=== PATIENT | female | born 1985 | race Caucasian/White ===

== ENCOUNTER 2016-09-21 21:29 | Emergency (ER) | payer MEDICAID ==
[2016-09-21 21:50] LABS: URINE APPEARANCE CLEAR; URINE BILIRUBIN NEGATIVE (NEGATIVE); URINE BLOOD NEGATIVE (NEGATIVE); URINE COLOR YELLOW; URINE GLUCOSE (UA) NEGATIVE (NEGATIVE); URINE KETONE NEGATIVE (NEGATIVE); URINE LEUKOCYTE ESTERASE NEGATIVE (NEGATIVE); URINE NITRITE NEGATIVE (NEGATIVE); URINE PROTEIN NEGATIVE (NEGATIVE); URINE UROBILINOGEN 0.2 E.U./dL (0.20 - 1.00)
[2016-09-21 21:51] LABS: HCG,QUALITATIVE URINE NEGATIVE (NEGATIVE)
[2016-09-21] MEDS ORDERED: 0.9 % SODIUM CHLORIDE 1,000 ML BAG IV ONE (22:29)
[2016-09-21] MEDS ORDERED: HYDROMORPHONE HCL 1 MG/ML CPJ IVP ONE (22:29)
[2016-09-21] MEDS ORDERED: ONDANSETRON HCL IV 4 MG/2 ML VIAL IV ONE (22:29)
[2016-09-21 22:59] LABS: BASO % 0.4 % (0-6); EOS % 1.3 % (0-6); GRAN % 50.9 % (47-80); HEMATOCRIT 41.2 % (35.0-47.0); HEMOGLOBIN 14.3 gm/dl (11.6-16.0); MEAN CELL VOLUME 94.1 fl (81-97); MEAN CORPUSCULAR HEMOGLOBIN 32.6 pg (27-33); MEAN CORPUSCULAR HGB CONC 34.7 g/dl (32-36); MEAN PLATELET VOLUME 11.6 fl (7.4-10.4); MONO % 8.4 % (0-9); PLATELET COUNT 232 K/uL (130-400); RED BLOOD COUNT 4.38 M/uL (3.80-5.40); RED CELL DISTRIBUTION WIDTH 12.6 % (11.5-14.5); WHITE BLOOD COUNT W/O DIFF 7.5 K/uL (4.2-12.2)
--- NOTE | 2016-09-21 23:06 | Emergency Department Record ---
History of Present Illness - General Chief Complaint: Abdominal Pain Stated Complaint: R SIDE ABD PAIN GOING DOWN R LEG Time Seen by Provider: 09/21/16 22:18 Source: Patient Mode of Arrival: Ambulatory Limitations: No limitations - History of Present Illness Initial Comments: pt is c/o rlq pain that radiates down into her r leg. she is 2 wks late on her menses but denies possibility of . she has extensive surgical hx w complications.. she has nausea MD Complaint: Abdominal pain Onset/Timin -: Week(s) Location: RLQ Radiation: Other Consistency: Intermittent Improves With: Rest Worsens With: Movement Associated Symptoms: Anorexia, Diarrhea, Nausea - Related Data Patient : No Home Medications Medication Instructions Recorded Confirmed Last Taken Clonazepam [Klonopin] 0.5 mg PO BID 07/16/15 09/21/16 09/21/16 Ondansetron HCl [Zofran] 4 mg PO Q6H PRN 09/21/16 09/21/16 Unknown Allergies Allergy/AdvReac Type Severity Reaction Status Date / Time No Known Drug Allergies Allergy Verified 07/16/15 15:51 Travel Screening - Travel/Exposure Within Last 30 Days Have you traveled within the last 30 days?: No - Travel Symptoms Symptom Screening: None Review of Systems Reviewed: No additional complaints except as noted below Constitutional: Reports: As per HPI. Denies: Chills, Fever, Malaise, Night sweats, Weakness, Weight change Eyes: Reports: As per HPI. Denies: Eye discharge, Eye pain, Photophobia, Vision change ENT: Reports: As per HPI. Denies: Congestion, Dental pain, Ear pain, Epistaxis , Hearing loss, Throat pain Respiratory: Reports: As per HPI. Denies: Cough, Dyspnea, Hemoptysis, Stridor, Wheezes Cardiovascular: Reports: As per HPI. Denies: Arrhythmia, Chest pain, Dyspnea on exertion, Edema, Murmurs, Orthopnea, Palpitations, Paroxysmal nocturnal dyspnea, Rheumatic Fever, Syncope Endocrine: Reports: As per HPI. Denies: Fatigue, Heat or cold intolerance, Polydipsia, Polyuria Gastrointestinal: Reports: As per HPI. Denies: Abdominal pain, Constipation, Diarrhea, Hematemesis, Hematochezia, Melena, Nausea, Vomiting Genitourinary: Reports: As per HPI. Denies: Abnormal menses, Discharge, Dyspareunia, Dysuria, Frequency, Hematuria, Incontinence, Retention, Urgency Musculoskeletal: Reports: As per HPI. Denies: Arthralgia, Back pain, Gout, Joint swelling, Myalgia, Neck pain Skin: Reports: As per HPI. Denies: Bruising, Change in color, Change in hair/ nails, Lesions, Pruritus, Rash Neurological: Reports: As per HPI. Denies: Abnormal gait, Confusion, Headache, Numbness, Paresthesias, Seizure, Tingling, Tremors, Vertigo, Weakness Psychiatric: Reports: As per HPI. Denies: Anxiety, Auditory hallucinations, Depression, Homicidal thoughts, Suicidal thoughts, Visual hallucinations Hematological/Lymphatic: Reports: As per HPI. Denies: Anemia, Blood Clots, Easy bleeding, Easy bruising, Swollen glands Past Medical History - SOCIAL HISTORY Smoking Status: Current every day smoker - RESPIRATORY Hx Respiratory Disorders: Yes Hx Pneumonia: Yes - CARDIOVASCULAR Hx Cardio Disorders: No - NEURO Hx Neuro Disorders: Yes Hx Seizures: Yes (Childhood epilepsy) - GI Hx GI Disorders: Yes Hx Abdominal Pain: Yes Hx Pancreatitis: Yes Comment:: w/Elisa-bowel was knicked-became septic, needed resection - Hx Genitourinary Disorders: No - ENDOCRINE Hx Endocrine Disorders: No - MUSCULOSKELETAL Hx Musculoskeletal Disorders: No - PSYCH Hx Psych Problems: Yes Hx Anxiety: Yes Hx Depression: Yes - HEMATOLOGY/ONCOLOGY Hx Hematology/Oncology Disorders: No Family Medical History Any Significant Family History?: Yes *Cancer Comment: aunt-breast cancer Hx HTN: Father, Grandparents Physical Exam - General General Appearance: Alert, Oriented x3, Cooperative, Mild distress - Head Head exam: Normal inspection - Eye Eye exam: Normal appearance, PERRL, EOMI Pupils: Normal accommodation - ENT ENT exam: Normal exam, Mucous membranes moist, Normal external ear exam, Normal orophraynx Ear exam: Normal external inspection. negative: External canal tenderness Nasal Exam: Normal inspection. negative: Discharge, Sinus tenderness Mouth exam: Normal external inspection, Tongue normal Teeth exam: Normal inspection. negative: Dental caries Throat exam: Normal inspection. negative: Tonsillar erythema, Tonsillar exudate - Neck Neck exam: Normal inspection, Full ROM. negative: Tenderness - Respiratory Respiratory exam: Normal lung sounds bilaterally. negative: Respiratory distress - Cardiovascular Cardiovascular Exam: Regular rate, Normal rhythm, Normal heart sounds - GI/Abdominal GI/Abdominal exam: Soft, Normal bowel sounds, Tenderness - Rectal Rectal exam: Deferred - exam: Deferred - Extremities Extremities exam: Normal inspection, Full ROM, Normal capillary refill. negative: Tenderness - Back Back exam: Reports: Normal inspection, Full ROM. Denies: Muscle spasm, Rash noted, Tenderness - Neurological Neurological exam: Alert, CN II-XII intact, Normal gait, Oriented X3 - Psychiatric Psychiatric exam: Normal affect, Normal mood - Skin Skin exam: Dry, Intact, Normal color, Warm Course Vital Signs 09/21/16 21:44 Temperature 98.3 F Pulse Rate [ 104 H Pulse Ox Probe] Respiratory 20 Rate Blood Pressure 132/101 [Left Arm] Pulse Ox 98 Medical Decision Making - Management Options MDM Management: Additional Work-up Planned (e.g. ADM/Transfer/OP Study) - Data Complexity MDM Data: Labs Ordered and/or Reviewed, X-Ray Ordered and/or Reviewed - Lab Data Result diagrams: 09/21/16 22:50 09/21/16 22:50 Lab Results 09/21/16 09/21/16 09/21/16 Range/Units 21:51 22:29 22:50 WBC 7.5 (4.2-12.2) K/uL RBC 4.38 (3.80-5.40) M/uL Hgb 14.3 (11.6-16.0) gm/dl Hct 41.2 (35.0-47.0) % MCV 94.1 (81-97) fl MCH 32.6 (27-33) pg MCHC 34.7 (32-36) g/dl RDW 12.6 (11.5-14.5) % Plt Count 232 (130-400) K/uL MPV 11.6 H (7.4-10.4) fl Gran % 50.9 (47-80) % Lymphocytes % 39.0 (16-45) % Monocytes % 8.4 (0-9) % Eosinophils % 1.3 (0-6) % Basophils % 0.4 (0-6) % Urine Color Yellow Urine Appearance Clear Urine pH 5.5 (5.0-8.0) Ur Specific [place] 1.010 (1.002-1.030) Urine Protein Negative (NEGATIVE) Urine Glucose (UA) Negative (NEGATIVE) Urine Ketones Negative (NEGATIVE) Urine Blood Negative (NEGATIVE) Urine Nitrite Negative (NEGATIVE) Urine Bilirubin Negative (NEGATIVE) Urine Urobilinogen 0.2 (0.20 - 1.00) E.U./dL Ur Leukocyte Esterase Negative (NEGATIVE) Urine HCG, Qual Negative Cancelled (NEGATIVE) - Radiology Data Radiology results: Report reviewed, Image reviewed Disposition Disposition: Discharge Clinical Impression: Abdominal pain Qualifiers: Abdominal location: right lower quadrant Qualified Code(s): R10.31 - Right lower quadrant pain Disposition: Home, Self-Care Condition: (1) Good Instructions: Abdominal Pain (ED) Additional Instructions: follow up with family doctor and with gi doctor. return sooner if worse
[2016-09-21 23:11] LABS: ALB/GLOB RATIO 1.3 (1.1-1.8); ALBUMIN 4.1 gm/dL (3.5-5.0); ALKALINE PHOSPHATASE 59 U/L (38-126); ALT/SGPT 53 U/L (9-52); ANION GAP 8.1 (7-16); AST/SGOT 39 U/L (14-36); BILIRUBIN,TOTAL 0.21 mg/dL (0.2-1.3); BLOOD UREA NITROGEN 5 mg/dL (7-17); CARBON DIOXIDE 22.9 mmol/L (22-30); CREATININE 0.6 mg/dL (0.52-1.04); EST GLOMERULAR FILTRATION RATE > 60 ml/min; GLUCOSE,RANDOM 84 mg/dL (70-110); LIPASE 106 U/L (23-300); TOTAL PROTEIN 7.2 gm/dL (6.3-8.2)
[2016-09-22] MEDS ORDERED: HYDROMORPHONE HCL 1 MG/ML CPJ IVP ONE (00:48)
--- NOTE | 2016-09-24 08:17 | CT SCAN REPORT ---
EXAM: ABDOMEN AND PELVIS CT WITH IV CONTRAST HISTORY: ACUTE RIGHT LOWER QUADRANT ABDOMINAL PAIN. PRIOR PARTIAL COLECTOMY WITH COLOSTOMY. TECHNIQUE: Contiguous axial images from the thoracic inlet to the symphysis pubis were obtained after the uneventful intravenous administration of 100 ml of Omnipaque 300. Oral contrast was also utilized. Comparison: Abdomen and pelvis CT 07/16/15. FINDINGS: The lung bases are clear. The liver is unremarkable with no focal lesion. The spleen is not enlarged with calcified granulomata. Suspect subcentimeter parapelvic right renal cysts. The kidneys are otherwise unremarkable. The adrenals and pancreas are normal. The gallbladder is absent. Status post subtotal colectomy. There appears to be an end-to-side anastomosis in the right mid abdomen best seen on axial image 63 of 126. On images 53 to 62 , the nondistended portion of residual colon proximal to the anastomosis demonstrates concentric wall thickening and mucosal hyperenhancement. This has improved from the prior study. Adjacent mildly enlarged lymph nodes are again noted in the right upper quadrant measuring up to 16 x 11 mm previously measuring up to 17 x 14 mm. No intestinal obstruction. No ascites. The uterus is present. Cyst in the right ovary measures 3.6 cm. No lytic or blastic osseous lesion. IMPRESSION: 1. STATUS POST SUBTOTAL COLECTOMY. THERE HAS BEEN IMPROVEMENT OF INFLAMMATORY CHANGE OF THE RESIDUAL COLON NEAR THE ANASTOMOSIS ALTHOUGH THERE IS MILD FOCAL INFLAMMATION REMAINING. ADJACENT REACTIVE MESENTERIC LYMPH NODES HAVE ALSO DECREASED IN SIZE AND NUMBER FROM THE PRIOR STUDY. NO INTESTINAL OBSTRUCTION. 2. PROBABLE BENIGN B[place] TYPE 1 PARAPELVIC RIGHT RENAL CYST. 3. OLD GRANULOMATOUS DISEASE. JOB NUMBER: [id number] [facility]
== END 2016-09-22 02:15 | disposition home or self-care (01) ==
LOC: ER 21:29
DX: R10.31 Right lower quadrant pain (principal); R19.7 Diarrhea, unspecified; R11.0 Nausea
CPT/HCPCS: 74177; 80053; 81003; 81025; 83690; 85025; 96361; 96374; 96375; 96376; 99284; J1170; J2405; J7030

== ENCOUNTER 2016-09-23 20:28 | Emergency (ER) | payer MEDICAID ==
[2016-09-23] MEDS ORDERED: HYDROCODONE/APAP 5/325MG TABLET PO ONE (20:50)
--- NOTE | 2016-09-23 21:25 | Emergency Department Record ---
History of Present Illness - General Chief Complaint: Ankle/Foot Injury Stated Complaint: ANKLE INJURY Time Seen by Provider: 09/23/16 20:41 Source: Patient Mode of Arrival: Ambulatory Limitations: No limitations - History of Present Illness Initial Comments: pt tripped over toy and injured l foot and ankle about an hour ago Complaint: Ankle injury, Foot injury Onset/Timin -: Hour(s) Injury: Ankle: Left, Foot: Left Type of Injury: Inversion Place: Home Severity: Moderate Severity scale (1-10): 7 Improves With: Cold therapy Worsens With: Weight bearing Context: Walking Associated Symptoms: Swelling, Able to partially bear weight Treatments Prior to Arrival: Cold therapy - Related Data Home Medications Medication Instructions Recorded Confirmed Last Taken Clonazepam [Klonopin] 0.5 mg PO BID 07/16/15 09/23/16 09/21/16 Ondansetron HCl [Zofran] 4 mg PO Q6H PRN 09/21/16 09/23/16 Unknown Previous Rx's Medication Instructions Recorded Hydrocodone/Acetaminophen [[place] 1 tab PO Q6H PRN #7 tab 09/23/16 5mg/325mg] Allergies Allergy/AdvReac Type Severity Reaction Status Date / Time No Known Drug Allergies Allergy Verified 07/16/15 15:51 Travel Screening - Travel/Exposure Within Last 30 Days Have you traveled within the last 30 days?: No - Travel Symptoms Symptom Screening: None Review of Systems Reviewed: No additional complaints except as noted below Constitutional: Reports: As per HPI. Denies: Chills, Fever, Malaise, Night sweats, Weakness, Weight change Eyes: Reports: As per HPI. Denies: Eye discharge, Eye pain, Photophobia, Vision change ENT: Reports: As per HPI. Denies: Congestion, Dental pain, Ear pain, Epistaxis , Hearing loss, Throat pain Respiratory: Reports: As per HPI. Denies: Cough, Dyspnea, Hemoptysis, Stridor, Wheezes Cardiovascular: Reports: As per HPI. Denies: Arrhythmia, Chest pain, Dyspnea on exertion, Edema, Murmurs, Orthopnea, Palpitations, Paroxysmal nocturnal dyspnea, Rheumatic Fever, Syncope Endocrine: Reports: As per HPI. Denies: Fatigue, Heat or cold intolerance, Polydipsia, Polyuria Gastrointestinal: Reports: As per HPI. Denies: Abdominal pain, Constipation, Diarrhea, Hematemesis, Hematochezia, Melena, Nausea, Vomiting Genitourinary: Reports: As per HPI. Denies: Abnormal menses, Discharge, Dyspareunia, Dysuria, Frequency, Hematuria, Incontinence, Retention, Urgency Musculoskeletal: Reports: As per HPI. Denies: Arthralgia, Back pain, Gout, Joint swelling, Myalgia, Neck pain Skin: Reports: As per HPI. Denies: Bruising, Change in color, Change in hair/ nails, Lesions, Pruritus, Rash Neurological: Reports: As per HPI. Denies: Abnormal gait, Confusion, Headache, Numbness, Paresthesias, Seizure, Tingling, Tremors, Vertigo, Weakness Psychiatric: Reports: As per HPI. Denies: Anxiety, Auditory hallucinations, Depression, Homicidal thoughts, Suicidal thoughts, Visual hallucinations Hematological/Lymphatic: Reports: As per HPI. Denies: Anemia, Blood Clots, Easy bleeding, Easy bruising, Swollen glands Past Medical History - SOCIAL HISTORY Smoking Status: Current every day smoker - RESPIRATORY Hx Respiratory Disorders: Yes Hx Pneumonia: Yes - CARDIOVASCULAR Hx Cardio Disorders: No - NEURO Hx Neuro Disorders: Yes Hx Seizures: Yes (Childhood epilepsy) - GI Hx GI Disorders: Yes Hx Abdominal Pain: Yes Hx Pancreatitis: Yes Comment:: w/Elisa-bowel was knicked-became septic, needed resection - Hx Genitourinary Disorders: No - ENDOCRINE Hx Endocrine Disorders: No - MUSCULOSKELETAL Hx Musculoskeletal Disorders: No - PSYCH Hx Psych Problems: Yes Hx Anxiety: Yes Hx Depression: Yes - HEMATOLOGY/ONCOLOGY Hx Hematology/Oncology Disorders: No Family Medical History Any Significant Family History?: Yes *Cancer Comment: aunt-breast cancer Hx HTN: Father, Grandparents Physical Exam - General General Appearance: Alert, Oriented x3, Cooperative, Mild distress - Head Head exam: Normal inspection - Eye Eye exam: Normal appearance, PERRL, EOMI Pupils: Normal accommodation - ENT ENT exam: Normal exam, Mucous membranes moist, Normal external ear exam, Normal orophraynx Ear exam: Normal external inspection. negative: External canal tenderness Nasal Exam: Normal inspection. negative: Discharge, Sinus tenderness Mouth exam: Normal external inspection, Tongue normal Teeth exam: Normal inspection. negative: Dental caries Throat exam: Normal inspection. negative: Tonsillar erythema, Tonsillar exudate - Neck Neck exam: Normal inspection, Full ROM. negative: Tenderness - Respiratory Respiratory exam: Normal lung sounds bilaterally. negative: Respiratory distress - Cardiovascular Cardiovascular Exam: Regular rate, Normal rhythm, Normal heart sounds - GI/Abdominal GI/Abdominal exam: Soft, Normal bowel sounds. negative: Tenderness - Rectal Rectal exam: Deferred - exam: Deferred - Extremities Extremities exam: Full ROM, Normal capillary refill, Tenderness Image of Feet: 1 - swelling, ecchymosis, tender - Back Back exam: Reports: Normal inspection, Full ROM. Denies: Muscle spasm, Rash noted, Tenderness - Neurological Neurological exam: Alert, CN II-XII intact, Normal gait, Oriented X3 - Psychiatric Psychiatric exam: Normal affect, Normal mood - Skin Skin exam: Dry, Intact, Normal color, Warm Course Vital Signs 09/23/16 20:32 Temperature 97.7 F Pulse Rate 101 H Respiratory 16 Rate Blood Pressure 119/82 Pulse Ox 96 Medical Decision Making - Management Options MDM Management: Additional Work-up Planned (e.g. ADM/Transfer/OP Study) - Data Complexity MDM Data: X-Ray Ordered and/or Reviewed - Radiology Data Radiology results: Report reviewed, Image reviewed Disposition Disposition: Discharge Clinical Impression: Sprain of Ankle Qualifiers: Encounter type: initial encounter Involved ligament of ankle: unspecified ligament Laterality: left Qualified Code(s): S93.402A - Sprain of unspecified ligament of left ankle, initial encounter Disposition: Home, Self-Care Condition: (1) Good Instructions: Ankle Sprain (ED) Additional Instructions: follow up with family doctor. return sooner if worse. ice and elevate. motrin for pain. Prescriptions: Hydrocodone/Acetaminophen [[place] 5mg/325mg] 1 tab PO Q6H PRN #7 tab PRN Reason: Pain - General Forms: Patient Portal Access
--- NOTE | 2016-09-25 13:39 | RADIOLOGY REPORT ---
EXAM: LEFT ANKLE, THREE VIEWS HISTORY: PATIENT HAS INJURY OF THE LEFT ANKLE. TECHNIQUE: Three views of the left ankle were provided without comparison studies. FINDINGS: There is no radiographic evidence of a fracture or dislocation of the left ankle. Mild soft tissue swelling is noted over the lateral aspect of the tarsal bones. The anterior tibiotalar fat pad is within normal limits. IMPRESSION: MILD SOFT TISSUE SWELLING IS NOTED OVER THE LATERAL ASPECT OF THE TARSAL BONES WITHOUT RADIOGRAPHIC EVIDENCE OF A FRACTURE OR DISLOCATION OF THE LEFT ANKLE. JOB NUMBER: [id number] [facility]
--- NOTE | 2016-09-25 13:42 | RADIOLOGY REPORT ---
EXAM: LEFT FOOT, THREE VIEWS HISTORY: PATIENT HAS INJURY TO THE LEFT FOOT. TECHNIQUE: Three views of the left foot were provided without comparison studies. FINDINGS: There is no radiographic evidence of a fracture or dislocation of the left foot. Mild soft tissue swelling is noted over the lateral aspect of the tarsal bones. IMPRESSION: MILD SOFT TISSUE SWELLING IS NOTED OVER THE LATERAL ASPECT OF THE TARSAL BONES WITHOUT RADIOGRAPHIC EVIDENCE OF A FRACTURE OR DISLOCATION OF THE LEFT FOOT. JOB NUMBER: [id number] [facility]
== END 2016-09-23 22:17 | disposition home or self-care (01) ==
LOC: ER 20:28
DX: S93.402A Sprain of unspecified ligament of left ankle, initial encounter (principal); M79.672 Pain in left foot; W22.8XXA Striking against or struck by other objects, initial encounter; Y92.009 Unspecified place in unspecified non-institutional (private) residence as the place of occurrence of the external cause
CPT/HCPCS: 99283; 99284

== ENCOUNTER 2017-01-19 18:06 | Emergency (ER) | payer MEDICAID ==
--- NOTE | 2017-01-19 19:04 | Emergency Department Record ---
History of Present Illness - General Chief Complaint: Chest Pain Stated Complaint: CHEST & L ARM PAIN Time Seen by Provider: 01/19/17 18:58 Source: Patient Mode of Arrival: Ambulatory Limitations: No limitations - History of Present Illness Initial Comments: 31 yo female presents to ED with a CC of intermittent chest pain for the past 5 hours. Patient reports that her pain symptoms are radiating down her left arm. Patient denies any precipitating factors, and the patient reports that her symptoms last "for a few seconds". Patient denies health problems other than "my stomach". Patient denies leg swelling or pain, and patient denies previous DVT. Patient also complains of right upper dental pain for the past 2-3 days, reports "I think I need an antibiotic". MD Complaint: Chest pain Onset/Timin -: Hour(s) Pain Location: Left chest Pain Radiation: LUE Severity: Moderate Severity scale (1-10): 7 Quality: Other Consistency: Constant Improves With: Nothing Worsens With: Nothing Treatments Prior to Arrival: None - Related Data On Oral Contraceptives: No Home Medications Medication Instructions Recorded Confirmed Last Taken Clonazepam [Klonopin] 0.5 mg PO BID 07/16/15 01/19/17 09/21/16 Ondansetron HCl [Zofran] 4 mg PO Q6H PRN 09/21/16 01/19/17 Unknown Dicyclomine HCl 10 mg PO DAILY 01/19/17 01/19/17 Unknown Allergies Allergy/AdvReac Type Severity Reaction Status Date / Time No Known Drug Allergies Allergy Verified 07/16/15 15:51 Travel Screening - Travel/Exposure Within Last 30 Days Have you traveled within the last 30 days?: No Review of Systems Constitutional: Denies: Chills, Fever, Malaise, Night sweats Eyes: Denies: Eye discharge, Eye pain ENT: Denies: Congestion, Ear pain, Epistaxis Respiratory: Denies: Cough, Dyspnea Cardiovascular: Reports: Chest pain. Denies: Dyspnea on exertion Endocrine: Denies: Fatigue, Heat or cold intolerance Gastrointestinal: Denies: Abdominal pain, Nausea, Vomiting Genitourinary: Denies: Incontinence, Retention Musculoskeletal: Denies: Arthralgia, Back pain, Gout, Joint swelling Skin: Denies: Bruising, Change in color Neurological: Denies: Abnormal gait, Confusion, Headache Psychiatric: Denies: Anxiety Hematological/Lymphatic: Denies: Anemia, Blood Clots Past Medical History - SOCIAL HISTORY Smoking Status: Current every day smoker Alcohol Use: Occasional Drug Use: None - RESPIRATORY Hx Respiratory Disorders: Yes Hx Pneumonia: Yes - CARDIOVASCULAR Hx Cardio Disorders: No - NEURO Hx Neuro Disorders: Yes Hx Seizures: Yes (Childhood epilepsy) - GI Hx GI Disorders: Yes Hx Abdominal Pain: Yes Hx Pancreatitis: Yes Comment:: w/Elisa-bowel was knicked-became septic, needed resection - Hx Genitourinary Disorders: No - ENDOCRINE Hx Endocrine Disorders: No - MUSCULOSKELETAL Hx Musculoskeletal Disorders: No - PSYCH Hx Psych Problems: Yes Hx Anxiety: Yes Hx Depression: Yes - HEMATOLOGY/ONCOLOGY Hx Hematology/Oncology Disorders: No Family Medical History Any Significant Family History?: Yes *Cancer Comment: aunt-breast cancer Hx HTN: Father, Grandparents Physical Exam - General General Appearance: Alert, Oriented x3, Cooperative, No acute distress Limitations: No limitations - Head Head exam: Atraumatic, Normocephalic, Normal inspection Head exam detail: negative: Abrasion, Contusion, Hector's sign, General tenderness, Hematoma, Laceration - Eye Eye exam: Normal appearance. negative: Conjunctival injection, Periorbital swelling, Periorbital tenderness, Scleral icterus - ENT Ear exam: negative: Auricular hematoma, Auricular trauma Mouth exam: negative: Drooling, Laceration, Muffled voice, Tongue elevation Teeth exam: Dental caries, Dental tenderness # Image of Mouth/Teeth: 1 - Dental tenderness, no gingival abscess is present - Neck Neck exam: Normal inspection. negative: Meningismus, Tenderness - Respiratory Respiratory exam: Normal lung sounds bilaterally. negative: Respiratory distress, Rhonchi, Stridor, Wheezes - Cardiovascular Cardiovascular Exam: Normal rhythm, Normal heart sounds, Tachycardia - GI/Abdominal GI/Abdominal exam: Soft. negative: Rebound, Rigid, Tenderness - Rectal Rectal exam: Deferred - exam: Deferred - Extremities Extremities exam: Normal inspection. negative: Pedal edema, Tenderness - Back Back exam: Denies: CVA tenderness (R), CVA tenderness (L) - Neurological Neurological exam: Alert, Normal gait, Oriented X3 - Psychiatric Psychiatric exam: Normal affect, Normal mood - Skin Skin exam: Normal color. negative: Abrasion Type of lesion: negative: abrasion Course Vital Signs 01/19/17 18:18 Temperature 98.7 F Pulse Rate 101 H Respiratory 20 Rate Blood Pressure 129/62 Pulse Ox 97 - Reevaluation(s) Reevaluation #1: 01/19/17 18:58 EKG: Sinus Tachycardia 107 Normal axis Normal intervals NO acute ST-T wave changes Reevaluation #2: 01/19/17 19:26 Nursing staff entered the room to initiate cardiac evaluation, patient eloped from the ED. Will attempt to locate the patient by phone. Reevaluation #3: 01/19/17 19:45 Both of the listed phone numbers for the patient were contacted, no answer. Medical Decision Making - Lab Data Result diagrams: 01/19/17 18:59 01/19/17 18:59 Disposition Disposition: Other (eloped) Clinical Impression: Pain, dental Chest pain Qualifiers: Chest pain type: unspecified Qualified Code(s): R07.9 - Chest pain, unspecified Disposition: Against Medical Advice Forms: Patient Portal Access Time of Disposition: 23:20 Quality - Quality Measures Quality Measures: N/A - Blood Pressure Screening Blood Pressure Classification: Pre-Hypertensive BP Reading Systolic Measurement: 129 Diastolic Measurement: 62 Screening for High Blood Pressure: < Pre-Hypertensive BP, F/U Documented > [ [id number]] Pre-Hypertensive Follow-up Interventions: Referral to alternative/primary care provider.
== END 2017-01-19 19:15 | disposition left against medical advice (07) ==
LOC: ER 18:06
DX: R07.9 Chest pain, unspecified (principal); K08.89 Other specified disorders of teeth and supporting structures
CPT/HCPCS: 99283

== ENCOUNTER 2017-05-16 19:11 | Emergency (ER) | payer MEDICAID ==
[2017-05-16] MEDS ORDERED: IBUPROFEN 400 MG TABLET PO ONE (19:32)
[2017-05-16] MEDS ORDERED: ACETAMINOPHEN 325 MG TAB PO ONE (19:35)
--- NOTE | 2017-05-16 19:47 | Emergency Department Record ---
History of Present Illness - General Chief Complaint: Ankle/Foot Injury Stated Complaint: LT ANKLE PAIN Time Seen by Provider: 05/16/17 19:31 Source: Patient Mode of Arrival: Ambulatory Limitations: No limitations - History of Present Illness Initial Comments: 31 yo female presents to ED for evaluation of injury to the left ankle while helping her mother move today. Patient reports an inversion-type injury resulting in swelling, pain and, and bruising symptoms. Patient denies taking any medication for pain prior to arrival, and denies other injury. Patient reports that she was able to partially apply weight prior to arrival. MD Complaint: Ankle injury Onset/Timin -: Hour(s) Injury: Ankle: Left Type of Injury: Blunt, Inversion Place: Home Severity: Mild Improves With: Rest Worsens With: Palpation, Weight bearing Associated Symptoms: Ambulatory, Able to partially bear weight - Related Data Home Medications Medication Instructions Recorded Confirmed Last Taken Albuterol Sulfate [Ventolin Hfa] 1 - 2 puff INH ASDIR 05/16/17 05/16/17 Unknown Allergies Allergy/AdvReac Type Severity Reaction Status Date / Time No Known Drug Allergies Allergy Verified 07/16/15 15:51 Travel Screening - Travel/Exposure Within Last 30 Days Have you traveled within the last 30 days?: No - Travel/Exposure Within Last Year Have you traveled outside the [place] in the last year?: No - Additonal Travel Details Have you been exposed to anyone with a communicable illness?: No - Travel Symptoms Symptom Screening: None Review of Systems Constitutional: Denies: Chills, Fever, Malaise, Night sweats Eyes: Denies: Eye discharge, Eye pain ENT: Denies: Congestion, Ear pain, Epistaxis Respiratory: Denies: Cough, Dyspnea Cardiovascular: Denies: Chest pain, Dyspnea on exertion Endocrine: Denies: Fatigue, Heat or cold intolerance Gastrointestinal: Denies: Abdominal pain, Nausea, Vomiting Genitourinary: Denies: Incontinence, Retention Musculoskeletal: Reports: Arthralgia, Joint swelling Skin: Reports: Bruising. Denies: Change in color Neurological: Denies: Abnormal gait, Confusion, Headache, Seizure Psychiatric: Denies: Anxiety Hematological/Lymphatic: Denies: Anemia, Blood Clots Past Medical History - SOCIAL HISTORY Smoking Status: Current every day smoker Alcohol Use: Occasional Drug Use: None - RESPIRATORY Hx Respiratory Disorders: Yes Hx Pneumonia: Yes - CARDIOVASCULAR Hx Cardio Disorders: No - NEURO Hx Neuro Disorders: Yes Hx Seizures: Yes (Childhood epilepsy) - GI Hx GI Disorders: Yes Hx Abdominal Pain: Yes Hx Pancreatitis: Yes Comment:: w/Elisa-bowel was knicked-became septic, needed resection - Hx Genitourinary Disorders: No - ENDOCRINE Hx Endocrine Disorders: No - MUSCULOSKELETAL Hx Musculoskeletal Disorders: No - PSYCH Hx Psych Problems: Yes Hx Anxiety: Yes Hx Depression: Yes - HEMATOLOGY/ONCOLOGY Hx Hematology/Oncology Disorders: No Family Medical History Any Significant Family History?: No *Cancer Comment: aunt-breast cancer Hx HTN: Father, Grandparents Physical Exam - General General Appearance: Alert, Oriented x3, Cooperative, Mild distress Limitations: No limitations - Head Head exam: Atraumatic, Normocephalic, Normal inspection Head exam detail: negative: Abrasion, Contusion, Hector's sign, General tenderness, Hematoma, Laceration - Eye Eye exam: Normal appearance. negative: Conjunctival injection, Periorbital swelling, Periorbital tenderness, Scleral icterus - ENT Ear exam: negative: Auricular hematoma, Auricular trauma Nasal Exam: negative: Active bleeding, Discharge, Dried blood, Foreign body Mouth exam: negative: Drooling, Laceration, Muffled voice, Tongue elevation - Neck Neck exam: Normal inspection. negative: Meningismus, Tenderness - Respiratory Respiratory exam: Normal lung sounds bilaterally. negative: Rales, Respiratory distress, Rhonchi, Stridor - Cardiovascular Cardiovascular Exam: Regular rate, Normal rhythm, Normal heart sounds Peripheral Pulses: 3+: Dorsalis Pedis (L) - GI/Abdominal GI/Abdominal exam: Soft. negative: Rebound, Rigid, Tenderness - Rectal Rectal exam: Deferred - exam: Deferred - Extremities Extremities exam: Tenderness, Other (TTP over jose cruz left lateral ankle with mild abrasion, ecchymosis present). negative: Calf tenderness, Pedal edema - Back Back exam: Denies: CVA tenderness (R), CVA tenderness (L) - Neurological Neurological exam: Alert, Oriented X3 - Psychiatric Psychiatric exam: Normal affect, Normal mood - Skin Skin exam: Normal color. negative: Abrasion Type of lesion: negative: abrasion Course Vital Signs 05/16/17 19:14 Temperature 97.8 F Pulse Rate 111 H Respiratory 20 Rate Blood Pressure 132/101 Pulse Ox 97 - Reevaluation(s) Reevaluation #1: 11/12/17 20:07 Left ankle: No acute fracture identified Will place in an air splint and administer crutches for comfort, patient was updated on her results, and appears stable for discharge at this time. Reevaluation #2: 05/16/17 20:23 Patient eloped from the ED prior to air splint and crutch administration. Patient ambulated from the department with steady gait per nursing staff. Disposition Disposition: Discharge Clinical Impression: Ankle sprain Disposition: Home, Self-Care Condition: (2) Stable Instructions: Ankle Sprain (ED) Additional Instructions: Return to ED if your symptoms worsen or if you have any concerns. Ice and Tylenol as needed for pain symptoms. Air splint and crutches as directed. Follow-up with your family doctor in 3-5 days as directed. Forms: Patient Portal Access Time of Disposition: 20:08 Quality - Quality Measures Quality Measures: N/A - Blood Pressure Screening Does Patient Have Any of the Following: No Blood Pressure Classification: Hypertensive Reading Systolic Measurement: 132 Diastolic Measurement: 101 Screening for High Blood Pressure: < First Hypertensive BP, F/U Documented > [ G8950] First Hypertensive Follow-up Interventions: Referral to alternative/primary care provider.
--- NOTE | 2017-05-17 10:11 | RADIOLOGY REPORT ---
EXAM: LEFT ANKLE, THREE VIEWS HISTORY: PAIN POST TRIPPING INJURY. TECHNIQUE: Three views of the left ankle were obtained. Comparison: Three views of the left ankle dated 09/23/16. Encounter: Initial. FINDINGS: There is normal bone mineralization. No acute fracture, dislocation , or destructive bone lesion is seen. The articular relations are maintained. No focal periarticular soft tissue abnormality. IMPRESSION: NO ACUTE BONE NOR JOINT ABNORMALITY IDENTIFIED. JOB NUMBER: [id number] MTDD
== END 2017-05-16 20:28 | disposition home or self-care (01) ==
LOC: ER 19:11
DX: S93.402A Sprain of unspecified ligament of left ankle, initial encounter (principal); X50.0XXA Overexertion from strenuous movement or load, initial encounter; Y93.E6 Activity, residential relocation; Y92.009 Unspecified place in unspecified non-institutional (private) residence as the place of occurrence of the external cause
CPT/HCPCS: 99283

== ENCOUNTER 2017-10-16 09:29 | Emergency (ER) | payer MEDICAID ==
--- NOTE | 2017-10-16 10:12 | Emergency Department Record ---
History of Present Illness - General Chief complaint: Dental Stated complaint: TOOTH ACHE Time Seen by Provider: 10/16/17 09:49 Mode of Arrival: Ambulatory - History of Present Illness Initial comments: upper left molar pain started one day ago and her teeth are in poor repair MD complaint: Tooth pain Onset/Timin -: Days(s) Severity: Severe Severity scale (1-10): 10 Quality: Aching Consistency: Constant Improves with: None Worsens with: None - Related Data Previous Rx's Medication Instructions Recorded Naproxen [Naprosyn] 500 mg PO Q12H #20 tab.dr 10/16/17 Penicillin V Potassium 500 mg PO QID #40 tablet 10/16/17 Allergies Allergy/AdvReac Type Severity Reaction Status Date / Time No Known Drug Allergies Allergy Verified 10/16/17 09:55 Travel Screening - Travel/Exposure Within Last 30 Days Have you traveled within the last 30 days?: No Review of Systems Reviewed: No additional complaints except as noted below Constitutional: Reports: As per HPI. Denies: Chills, Fever, Malaise, Night sweats, Weakness, Weight change Eyes: Reports: As per HPI. Denies: Eye discharge, Eye pain, Photophobia, Vision change ENT: Reports: As per HPI. Denies: Congestion, Dental pain, Ear pain, Epistaxis , Hearing loss, Throat pain Respiratory: Reports: As per HPI. Denies: Cough, Dyspnea, Hemoptysis, Stridor, Wheezes Cardiovascular: Reports: As per HPI. Denies: Arrhythmia, Chest pain, Dyspnea on exertion, Edema, Murmurs, Orthopnea, Palpitations, Paroxysmal nocturnal dyspnea, Rheumatic Fever, Syncope Endocrine: Reports: As per HPI. Denies: Fatigue, Heat or cold intolerance, Polydipsia, Polyuria Gastrointestinal: Reports: As per HPI. Denies: Abdominal pain, Constipation, Diarrhea, Hematemesis, Hematochezia, Melena, Nausea, Vomiting Genitourinary: Reports: As per HPI. Denies: Abnormal menses, Discharge, Dyspareunia, Dysuria, Frequency, Hematuria, Incontinence, Retention, Urgency Musculoskeletal: Reports: As per HPI. Denies: Arthralgia, Back pain, Gout, Joint swelling, Myalgia, Neck pain Skin: Reports: As per HPI. Denies: Bruising, Change in color, Change in hair/ nails, Lesions, Pruritus, Rash Neurological: Reports: As per HPI. Denies: Abnormal gait, Confusion, Headache, Numbness, Paresthesias, Seizure, Tingling, Tremors, Vertigo, Weakness Psychiatric: Reports: As per HPI. Denies: Anxiety, Auditory hallucinations, Depression, Homicidal thoughts, Suicidal thoughts, Visual hallucinations Hematological/Lymphatic: Reports: As per HPI. Denies: Anemia, Blood Clots, Easy bleeding, Easy bruising, Swollen glands Past Medical History - SOCIAL HISTORY Smoking Status: Current every day smoker Alcohol Use: None Drug Use: None - RESPIRATORY Hx Respiratory Disorders: Yes Hx Pneumonia: Yes - CARDIOVASCULAR Hx Cardio Disorders: No - NEURO Hx Neuro Disorders: Yes Hx Seizures: Yes (Childhood epilepsy) - GI Hx GI Disorders: Yes Hx Abdominal Pain: Yes Hx Irritable Bowel: Yes (ulcerative colitis) Hx Pancreatitis: Yes Comment:: w/Elisa-bowel was knicked-became septic, needed resection - Hx Genitourinary Disorders: No - ENDOCRINE Hx Endocrine Disorders: No - MUSCULOSKELETAL Hx Musculoskeletal Disorders: No - PSYCH Hx Psych Problems: Yes Hx Anxiety: Yes Hx Depression: Yes - HEMATOLOGY/ONCOLOGY Hx Hematology/Oncology Disorders: No Family Medical History Any Significant Family History?: Yes *Cancer Comment: aunt-breast cancer Hx HTN: Father, Grandparents Physical Exam - General General Appearance: Alert, Oriented x3, Cooperative, No acute distress - Head Head exam: Normal inspection - Eye Eye exam: Normal appearance, PERRL Pupils: Normal accommodation - ENT ENT exam: Normal exam, Mucous membranes moist, Normal external ear exam, Normal orophraynx, TM's normal bilaterally Ear exam: Normal external inspection. negative: External canal tenderness Nasal Exam: Normal inspection. negative: Discharge, Sinus tenderness Mouth exam: Normal external inspection, Tongue normal Teeth exam: Dental caries, Dental tenderness # Throat exam: Normal inspection. negative: Tonsillar erythema, Tonsillar exudate Image of Mouth/Teeth: 1 - toothache - Neck Neck exam: Normal inspection, Full ROM. negative: Tenderness - Respiratory Respiratory exam: Normal lung sounds bilaterally. negative: Respiratory distress - Cardiovascular Cardiovascular Exam: Regular rate, Normal rhythm, Normal heart sounds - GI/Abdominal GI/Abdominal exam: Soft, Normal bowel sounds. negative: Tenderness - Rectal Rectal exam: Deferred - exam: Deferred - Extremities Extremities exam: Normal inspection, Full ROM, Normal capillary refill. negative: Tenderness - Back Back exam: Reports: Normal inspection, Full ROM. Denies: Muscle spasm, Rash noted, Tenderness - Neurological Neurological exam: Alert, Normal gait, Oriented X3, Reflexes normal - Psychiatric Psychiatric exam: Normal affect, Normal mood - Skin Skin exam: Dry, Intact, Normal color, Warm Course Vital Signs 10/16/17 09:54 Temperature 98.1 F Pulse Rate 99 H Respiratory 20 Rate Blood Pressure 125/87 Pulse Ox 97 Disposition Clinical Impression: Tooth ache Disposition: Home, Self-Care Condition: (1) Good Instructions: Toothache (ED) Additional Instructions: warm water rinses Prescriptions: Naproxen [Naprosyn] 500 mg PO Q12H #20 tab.dr Penicillin V Potassium 500 mg PO QID #40 tablet Quality - Quality Measures Quality Measures: N/A - Blood Pressure Screening Does Patient Have Any of the Following: No Blood Pressure Classification: Pre-Hypertensive BP Reading Systolic Measurement: 125 Diastolic Measurement: 87 Screening for High Blood Pressure: < Pre-Hypertensive BP, F/U Documented > [ G8950] Pre-Hypertensive Follow-up Interventions: Referral to alternative/primary care provider.
== END 2017-10-16 10:20 | disposition home or self-care (01) ==
LOC: ER 09:29
DX: K02.9 Dental caries, unspecified (principal); F17.210 Nicotine dependence, cigarettes, uncomplicated
CPT/HCPCS: 99282

== ENCOUNTER 2017-10-18 13:37 | Emergency (ER) | payer MEDICAID ==
--- NOTE | 2017-10-18 13:47 | Emergency Department Record ---
History of Present Illness - General Stated complaint: SWELLING LT SIDE FACE,TOOTH PAIN Time Seen by Provider: 10/18/17 13:40 Source: Patient Mode of Arrival: Ambulatory Limitations: No limitations - History of Present Illness Initial comments: 32 yo female presents with left sided facial pain and swelling. She has poor dentition. She started Penicillin on the . The area has developed some swelling of the upper cheek. No fever. No limitation to opening and closing the jaw. No neck pain. No swollen glands. She has called dentists but they do not take her insurance. She has not called her doctor. No lower jaw pain. MD complaint: Tooth pain -: Days(s) (3) Location: Tooth # Quality: Aching Consistency: Constant Improves with: None Worsens with: Eating Context- Dental: History of dental caries - Related Data Previous Rx's Medication Instructions Recorded Naproxen [Naprosyn] 500 mg PO Q12H #20 tab. 10/16/17 Penicillin V Potassium 500 mg PO QID #40 tablet 10/16/17 Clindamycin HCl 300 mg PO QID #28 capsule 10/18/17 Hydrocodone/Acetaminophen [[place] 1 each PO Q6H #10 tablet 10/18/17 5-325 Tablet] Allergies Allergy/AdvReac Type Severity Reaction Status Date / Time No Known Drug Allergies Allergy Verified 10/18/17 13:47 Review of Systems Constitutional: Denies: Chills, Fever, Malaise, Weakness Eyes: Denies: Eye discharge ENT: Reports: As per HPI, Dental pain. Denies: Congestion, Throat pain Respiratory: Denies: Cough, Dyspnea Cardiovascular: Denies: Chest pain, Syncope Endocrine: Denies: Fatigue Gastrointestinal: Denies: Abdominal pain, Diarrhea, Nausea, Vomiting Genitourinary: Denies: Dysuria, Urgency Musculoskeletal: Denies: Arthralgia, Back pain, Neck pain Skin: Denies: Change in color, Rash Neurological: Denies: Confusion Psychiatric: Denies: Anxiety Hematological/Lymphatic: Denies: Easy bleeding, Easy bruising, Swollen glands Past Medical History - SOCIAL HISTORY Smoking Status: Current every day smoker Drug Use: None - RESPIRATORY Hx Respiratory Disorders: Yes Hx Pneumonia: Yes - CARDIOVASCULAR Hx Cardio Disorders: No - NEURO Hx Neuro Disorders: Yes Hx Seizures: Yes (Childhood epilepsy) - GI Hx GI Disorders: Yes Hx Abdominal Pain: Yes Hx Irritable Bowel: Yes (ulcerative colitis) Hx Pancreatitis: Yes Comment:: w/Elisa-bowel was knicked-became septic, needed resection - Hx Genitourinary Disorders: No - ENDOCRINE Hx Endocrine Disorders: No - MUSCULOSKELETAL Hx Musculoskeletal Disorders: No - PSYCH Hx Psych Problems: Yes Hx Anxiety: Yes Hx Depression: Yes - HEMATOLOGY/ONCOLOGY Hx Hematology/Oncology Disorders: No Family Medical History *Cancer Comment: aunt-breast cancer Hx HTN: Father, Grandparents Physical Exam - General General Appearance: Alert, Oriented x3, Cooperative, No acute distress Limitations: No limitations - Head Head exam: Atraumatic, Normocephalic. negative: Normal inspection Image of Face/Head: 1 - mild swelling of the cheek, no warmth or redness - Eye Eye exam: Normal appearance. negative: Conjunctival injection, Periorbital swelling, Periorbital tenderness, Scleral icterus - ENT ENT exam: Normal exam, Mucous membranes moist, Normal orophraynx Ear exam: Normal external inspection Nasal Exam: Normal inspection Mouth exam: Normal external inspection Teeth exam: Dental caries, Dental tenderness #, Fractured tooth #, Other (No visible abscess, no intraoral swelling, widely patent). negative: Gingival enlargement Throat exam: Normal inspection. negative: Tonsillar erythema, Tonsillar exudate - Neck Neck exam: Normal inspection, Full ROM. negative: Lymphadenopathy, Tenderness - Respiratory Respiratory exam: Normal lung sounds bilaterally. negative: Respiratory distress - Cardiovascular Cardiovascular Exam: Regular rate, Normal rhythm, Normal heart sounds - Rectal Rectal exam: Deferred - exam: Deferred - Extremities Extremities exam: Normal inspection - Neurological Neurological exam: Alert, Oriented X3 - Psychiatric Psychiatric exam: Normal affect, Normal mood - Skin Skin exam: Dry, Intact, Normal color, Warm Course - Reevaluation(s) Reevaluation #1: 32 yo with likely dental infection with mild swelling. NO fever, no abscess visible. She was given IV Clindamycin She was referred to the [facility] that accepts her insurance She will be brought back for additional antibiotics and a recheck as well. 10/18/17 13:51 Disposition Disposition: Discharge Clinical Impression: Dental infection Disposition: Home, Self-Care Condition: (1) Good Instructions: Dental Abscess (ED) Additional Instructions: You have been referred to the emergency dental services at the [facility] [place] Department Return at 9pm for an additional IV dose of mediation tonight Prescriptions: Clindamycin HCl 300 mg PO QID #28 capsule Hydrocodone/Acetaminophen [[place] 5-325 Tablet] 1 each PO Q6H #10 tablet Time of Disposition: 14:01 Quality - Quality Measures Quality Measures: N/A - Blood Pressure Screening Does Patient Have Any of the Following: No Blood Pressure Classification: Pre-Hypertensive BP Reading Systolic Measurement: 147 Diastolic Measurement: 86 Screening for High Blood Pressure: < Pre-Hypertensive BP, F/U Documented > [ G8950] Pre-Hypertensive Follow-up Interventions: Referral to alternative/primary care provider.
[2017-10-18] MEDS ORDERED: CLINDAMYCIN 600MG/50ML PREMIX 600 MG/50 ML BAG IVPB ONE (13:48)
[2017-10-18] MEDS ORDERED: KETOROLAC 30 MG/ML VIAL IVP ONE (13:48)
== END 2017-10-18 14:46 | disposition home or self-care (01) ==
LOC: ER 13:37
DX: K04.7 Periapical abscess without sinus (principal); R22.0 Localized swelling, mass and lump, head; F17.210 Nicotine dependence, cigarettes, uncomplicated
CPT/HCPCS: 99282 ×2; 99284 ×2; 96374; 96365; 96375; J1885

== ENCOUNTER 2017-10-18 20:59 | Emergency (ER) | payer MEDICAID ==
[2017-10-18] MEDS ORDERED: CLINDAMYCIN 600MG/50ML PREMIX 600 MG/50 ML BAG IVPB ONE (21:14)
--- NOTE | 2017-10-18 21:27 | Emergency Department Record ---
History of Present Illness - General Chief Complaint: Wound, check Stated Complaint: 2ND ROUND OF ANTIBIOTICS Time Seen by Provider: 10/18/17 21:14 Source: Patient Mode of arrival: Ambulatory Limitations: No limitations - History of Present Illness Initial Comments: 32 yo female returns to ED for repeat IV antibiotics. Patient was seen and evaluated earlier this afternoon for dental infection, had been receiving PCN several days ago that was not improving her symptoms. Patient reports that she was switched to Clindamycin this afternoon, reports that she is here for repeat IV dosing before starting oral antibiotics tomorrow. Patient will also be following up with the [facility] dental clinic tomorrow. Patient denies any worsening of her symptoms following treatment earlier today. MD Complaint: Needs IV antibiotics Onset/Timin -: Days(s) Initial Visit For: Other (dental infection) Returns Today for: Needs IV antibiotics Symptoms Since Prior Visit: No new symptoms Associated Symptoms: None - Related Data Previous Rx's Medication Instructions Recorded Naproxen [Naprosyn] 500 mg PO Q12H #20 tab. 10/16/17 Clindamycin HCl 300 mg PO QID #28 capsule 10/18/17 Hydrocodone/Acetaminophen [[place] 1 each PO Q6H #10 tablet 10/18/17 5-325 Tablet] Allergies Allergy/AdvReac Type Severity Reaction Status Date / Time No Known Drug Allergies Allergy Verified 10/18/17 13:47 Travel Screening - Travel/Exposure Within Last 30 Days Have you traveled within the last 30 days?: No - Travel/Exposure Within Last Year Have you traveled outside the [place] in the last year?: No - Additonal Travel Details Have you been exposed to anyone with a communicable illness?: No - Travel Symptoms Symptom Screening: None Review of Systems Constitutional: Denies: Chills, Fever, Malaise, Night sweats Eyes: Denies: Eye discharge, Eye pain ENT: Reports: Dental pain. Denies: Congestion, Ear pain, Epistaxis Respiratory: Denies: Cough, Dyspnea Cardiovascular: Denies: Chest pain, Dyspnea on exertion Endocrine: Denies: Fatigue, Heat or cold intolerance Gastrointestinal: Denies: Abdominal pain, Nausea, Vomiting Genitourinary: Denies: Incontinence, Retention Musculoskeletal: Denies: Arthralgia, Back pain Skin: Denies: Bruising, Change in color Neurological: Denies: Abnormal gait, Confusion, Headache, Seizure Psychiatric: Denies: Anxiety Hematological/Lymphatic: Denies: Anemia, Blood Clots Past Medical History - SOCIAL HISTORY Smoking Status: Current every day smoker Alcohol Use: Occasional Drug Use: None - RESPIRATORY Hx Respiratory Disorders: Yes Hx Pneumonia: Yes - CARDIOVASCULAR Hx Cardio Disorders: No - NEURO Hx Neuro Disorders: Yes Hx Seizures: Yes (Childhood epilepsy) - GI Hx GI Disorders: Yes Hx Abdominal Pain: Yes Hx Irritable Bowel: Yes (ulcerative colitis) Hx Pancreatitis: Yes Comment:: w/Elisa-bowel was knicked-became septic, needed resection - Hx Genitourinary Disorders: No - ENDOCRINE Hx Endocrine Disorders: No - MUSCULOSKELETAL Hx Musculoskeletal Disorders: No - PSYCH Hx Psych Problems: Yes Hx Anxiety: Yes Hx Depression: Yes - HEMATOLOGY/ONCOLOGY Hx Hematology/Oncology Disorders: No Family Medical History Any Significant Family History?: No *Cancer Comment: aunt-breast cancer Hx HTN: Father, Grandparents Physical Exam - General General Appearance: Alert, Oriented x3, Cooperative, Mild distress Limitations: No limitations - Head Head exam: Atraumatic, Normocephalic, Normal inspection Head exam detail: negative: Abrasion, Contusion, Hector's sign, General tenderness, Hematoma, Laceration - Eye Eye exam: Normal appearance. negative: Conjunctival injection, Periorbital swelling, Periorbital tenderness, Scleral icterus - ENT Ear exam: negative: Auricular hematoma, Auricular trauma Nasal Exam: negative: Active bleeding, Discharge, Dried blood, Foreign body Mouth exam: negative: Drooling, Laceration, Muffled voice, Tongue elevation Teeth exam: Dental caries, Dental tenderness #, Fractured tooth # Throat exam: negative: Tonsillar erythema, Tonsillomegaly, R peritonsillar mass , L peritonsillar mass Image of Mouth/Teeth: 1 - dental fracture, no gingival abscess is present - Neck Neck exam: Normal inspection. negative: Meningismus, Tenderness - Respiratory Respiratory exam: Normal lung sounds bilaterally. negative: Rales, Respiratory distress, Rhonchi, Stridor - Cardiovascular Cardiovascular Exam: Regular rate, Normal rhythm, Normal heart sounds - GI/Abdominal GI/Abdominal exam: Soft. negative: Rebound, Rigid, Tenderness - Rectal Rectal exam: Deferred - exam: Deferred - Extremities Extremities exam: Normal inspection. negative: Calf tenderness, Pedal edema, Tenderness - Back Back exam: Denies: CVA tenderness (R), CVA tenderness (L) - Neurological Neurological exam: Alert, Normal gait, Oriented X3 - Psychiatric Psychiatric exam: Normal affect, Normal mood - Skin Skin exam: Normal color. negative: Abrasion Type of lesion: negative: abrasion Course Vital Signs 10/18/17 21:09 Temperature 98.2 F Pulse Rate [ 71 Pulse Ox Probe] Respiratory 20 Rate Blood Pressure 121/82 [Left Arm] Pulse Ox 97 - Reevaluation(s) Reevaluation #1: 10/18/17 21:32 Repeat IV clindamycin ordered to infuse, patient appears stable for discharge following her IV infusion as her symptoms have not worsened since that time. Patient has clear instructions for follow-up tomorrow as well. Disposition Disposition: Discharge Clinical Impression: Dental infection Disposition: Home, Self-Care Condition: (2) Stable Instructions: Dental Abscess (ED) Additional Instructions: Return to ED if your symptoms worsen or if you have any concerns. Follow-up with the [facility] in 1-2 days. Clindamycin as previously prescribed. Forms: Patient Portal Access Time of Disposition: 21:27 Quality - Quality Measures Quality Measures: N/A - Blood Pressure Screening Does Patient Have Any of the Following: No Blood Pressure Classification: Pre-Hypertensive BP Reading Systolic Measurement: 121 Diastolic Measurement: 82 Screening for High Blood Pressure: < Pre-Hypertensive BP, F/U Documented > [ G8950] Pre-Hypertensive Follow-up Interventions: Referral to alternative/primary care provider.
== END 2017-10-18 22:01 | disposition home or self-care (01) ==
LOC: ER 20:59
DX: K04.7 Periapical abscess without sinus (principal); F17.210 Nicotine dependence, cigarettes, uncomplicated

== ENCOUNTER 2017-11-14 20:17 | Emergency (ER) | payer MEDICAID ==
[2017-11-14] MEDS ORDERED: KETOROLAC 30 MG/ML VIAL IVP ONE (20:41)
[2017-11-14 20:46] LABS: BASO % 0.2 % (0-6); EOS % 1.2 % (0-6); GRAN % 54.5 % (47-80); HEMATOCRIT 44.3 % (35.0-47.0); HEMOGLOBIN 14.8 gm/dl (11.6-16.0); LYMPH % 38.8 % (16-45); MEAN CELL VOLUME 95.7 fl (81-97); MEAN CORPUSCULAR HGB CONC 33.4 g/dl (32-36); MEAN PLATELET VOLUME 11.2 fl (7.4-10.4); MONO % 5.3 % (0-9); PLATELET COUNT 300 K/uL (130-400); RED BLOOD COUNT 4.63 M/uL (3.80-5.40); RED CELL DISTRIBUTION WIDTH 13.2 % (11.5-14.5); WHITE BLOOD COUNT W/O DIFF 9.1 K/uL (4.2-12.2)
--- NOTE | 2017-11-14 20:48 | Emergency Department Record ---
History of Present Illness - General Chief Complaint: Chest Pain Stated Complaint: CHEST PAIN Time Seen by Provider: 11/14/17 20:28 Source: Patient Mode of Arrival: EMS Limitations: No limitations - History of Present Illness Initial Comments: The patient is here due to L sided CP for the last 6-7 hours. The pain is sharp and stabbing, non-radiating and is worse with chest twisting. There is no SOB, DHRUV, sweating, or nausea. The pain also is not pleuritic. The patient denies any injury or trauma or any hx of similar issues. Onset/Timin -: Hour(s) Pain Location: Left chest Severity scale (1-10): 8 - Related Data Home Medications Medication Instructions Recorded Confirmed Last Taken Sertraline HCl [Zoloft] 50 mg PO DAILY 11/14/17 11/14/17 Unknown Previous Rx's Medication Instructions Recorded Lidocaine Patch [Lidoderm] 1 ea TOP DAILY #7 patch 11/14/17 Naproxen [Naprosyn] 500 mg PO BID #14 tablet. 11/14/17 Allergies Allergy/AdvReac Type Severity Reaction Status Date / Time No Known Drug Allergies Allergy Verified 10/18/17 13:47 Travel Screening - Travel/Exposure Within Last 30 Days Have you traveled within the last 30 days?: No - Travel/Exposure Within Last Year Have you traveled outside the [place] in the last year?: No - Additonal Travel Details Have you been exposed to anyone with a communicable illness?: No - Travel Symptoms Symptom Screening: None Review of Systems Constitutional: Denies: Chills, Fever Eyes: Denies: Eye discharge ENT: Denies: Congestion Respiratory: Denies: Cough, Dyspnea Cardiovascular: Denies: Arrhythmia, Dyspnea on exertion Endocrine: Denies: Fatigue Gastrointestinal: Denies: Abdominal pain Genitourinary: Denies: Dysuria Musculoskeletal: Denies: Back pain Past Medical History - SOCIAL HISTORY Smoking Status: Current every day smoker Alcohol Use: Occasional Drug Use: None - RESPIRATORY Hx Respiratory Disorders: Yes Hx Pneumonia: Yes - CARDIOVASCULAR Hx Cardio Disorders: No - NEURO Hx Neuro Disorders: Yes Hx Seizures: Yes (Childhood epilepsy) - GI Hx GI Disorders: Yes Hx Abdominal Pain: Yes Hx Irritable Bowel: Yes (ulcerative colitis) Hx Pancreatitis: Yes Comment:: w/Elisa-bowel was knicked-became septic, needed resection - Hx Genitourinary Disorders: No - ENDOCRINE Hx Endocrine Disorders: No - MUSCULOSKELETAL Hx Musculoskeletal Disorders: No - PSYCH Hx Psych Problems: Yes Hx Anxiety: Yes Hx Depression: Yes - HEMATOLOGY/ONCOLOGY Hx Hematology/Oncology Disorders: No Family Medical History Any Significant Family History?: No *Cancer Comment: aunt-breast cancer Hx HTN: Father, Grandparents Physical Exam - General General Appearance: Alert, Oriented x3, Cooperative, No acute distress - Head Head exam: Atraumatic, Normocephalic, Normal inspection - Eye Eye exam: Normal appearance, PERRL - ENT Throat exam: Normal inspection. negative: Tonsillar erythema, Tonsillar exudate - Neck Neck exam: Normal inspection, Full ROM. negative: Tenderness - Respiratory Respiratory exam: Normal lung sounds bilaterally, Chest wall tenderness (The L sided CP is 100% reproducible with palpation of the L anterior chest wall.). negative: Respiratory distress - Cardiovascular Cardiovascular Exam: Regular rate, Normal rhythm, Normal heart sounds - GI/Abdominal GI/Abdominal exam: Soft, Normal bowel sounds. negative: Tenderness - Extremities Extremities exam: Normal inspection, Full ROM, Normal capillary refill. negative: Calf tenderness, Pedal edema, Tenderness Image of Full Body: 1 - Area of pain and reproducible tenderness. - Neurological Neurological exam: Alert. negative: Motor sensory deficit Course Vital Signs 11/14/17 20:18 Temperature 97.7 F Pulse Rate 82 Respiratory 20 Rate Blood Pressure 124/80 Pulse Ox 97 - Reevaluation(s) Reevaluation #1: The patient is resting comfortably at this time. Her pain is still 100% reproducible to palpation. I did explain to her that her workup is very normal and the etiology of the pain appears to be from her chest wall. She is to take the prescribed pain medicines and see her PCP this week for recheck. 11/14/17 21:50 Reevaluation #2: I did explain to the patient that I do not feel the etiology of her pain is cardiac due to the fact it is 100% reproducible, she is young, healthy with only tobacco as her risk factor for CAD. Her workup has been normal including and EKG, cardiac enzymes, and CXR. I also STRONGLY doubt a PE as the cause due to the pain not being pleuritic, no risk factors for PE, also low prob by Wells Criteria and PERC neg. 11/14/17 21:54 Medical Decision Making - Data Complexity MDM Data: Labs Ordered and/or Reviewed, X-Ray Ordered and/or Reviewed, EKG Ordered and/or Reviewed - Lab Data Result diagrams: 11/14/17 20:03 11/14/17 20:03 - EKG Data -: EKG Interpreted by Me EKG: No Acute Changes, Normal EKG - Radiology Data Radiology results: Report reviewed (CXR: Healed granulomatous dz, O/W neg.) Disposition Disposition: Discharge Clinical Impression: Chest wall pain Disposition: Home, Self-Care Condition: (2) Stable Instructions: Chest Wall Pain (ED) Additional Instructions: Please take Naprosyn for pain and also take the prescribed Lidoderm. Please see your family doctor for recheck in 2-3 days. Return to the ER for any worsening symptoms, or any trouble breathing or shortness of breath. Prescriptions: Lidocaine Patch [Lidoderm] 1 ea TOP DAILY #7 patch Naproxen [Naprosyn] 500 mg PO BID #14 tablet.dr Forms: Patient Portal Access Time of Disposition: 21:54 Quality - Quality Measures Quality Measures: N/A - Blood Pressure Screening View Details: Yes Does Patient Have Any of the Following: No Blood Pressure Classification: Pre-Hypertensive BP Reading Systolic Measurement: 124 Diastolic Measurement: 80 Screening for High Blood Pressure: < Pre-Hypertensive BP, F/U Documented > [ G8950] Pre-Hypertensive Follow-up Interventions: Referral to alternative/primary care provider.
[2017-11-14 20:56] LABS: BLOOD UREA NITROGEN 6 mg/dL (6-20); CREATININE 0.6 mg/dL (0.5-0.9); EST GLOMERULAR FILTRATION RATE > 60 mL/min
[2017-11-14 20:59] LABS: GLUCOSE,RANDOM 83 mg/dL (74-109)
[2017-11-14 21:02] LABS: CREATINE PHOSPHOKINASE 108 U/L (26-192)
[2017-11-14] MEDS ORDERED: ACETAMINOPHEN 1,000 MG/100 ML BTL IVPB ONE (21:17)
[2017-11-14] MEDS ORDERED: LIDOCAINE 5% PATCH TOP ONE (21:50)
--- NOTE | 2017-11-15 09:55 | RADIOLOGY REPORT ---
EXAM: CHEST, TWO VIEWS HISTORY: DIFFICULTY IN BREATHING. TECHNIQUE: Frontal and lateral views of the chest were performed. FINDINGS: The heart size is normal. The lung sorto are clear. There is calcified right hilar lymph nodes. There is calcified granuloma right upper lobe. No infiltrate or pleural effusion. IMPRESSION: FINDINGS SUGGESTIVE OF HEALED GRANULOMATOUS DISEASE. NO ACUTE PROCESS. JOB NUMBER: [id number] MTDD
== END 2017-11-14 22:06 | disposition home or self-care (01) ==
LOC: ER 20:17
DX: R07.89 Other chest pain (principal); R06.00 Dyspnea, unspecified; F17.210 Nicotine dependence, cigarettes, uncomplicated
CPT/HCPCS: 71046; 80048; 82550; 82553; 84484; 85025; 93005; 93010; 96365; 96375; 99284; J1885

== ENCOUNTER 2018-03-20 10:29 | Emergency (ER) | payer SELFPAY ==
--- NOTE | 2018-03-20 10:44 | Emergency Department Record ---
History of Present Illness - General Chief Complaint: Ankle/Foot Injury Stated Complaint: ANKLE PAIN Time Seen by Provider: 03/20/18 10:44 - Related Data Previous Rx's Medication Instructions Recorded Hydrocodone/Acetaminophen [[place] 1 each PO Q4HR #18 tablet 03/20/18 7.5-325 Tablet] Allergies Allergy/AdvReac Type Severity Reaction Status Date / Time No Known Drug Allergies Allergy Verified 03/20/18 10:37 Past Medical History - SOCIAL HISTORY Smoking Status: Current every day smoker - RESPIRATORY Hx Respiratory Disorders: Yes Hx Pneumonia: Yes - CARDIOVASCULAR Hx Cardio Disorders: No - NEURO Hx Neuro Disorders: Yes Hx Seizures: Yes (Childhood epilepsy) - GI Hx GI Disorders: Yes Hx Abdominal Pain: Yes Hx Irritable Bowel: Yes (ulcerative colitis) Hx Pancreatitis: Yes Comment:: w/Elisa-bowel was knicked-became septic, needed resection - Hx Genitourinary Disorders: No - ENDOCRINE Hx Endocrine Disorders: No - MUSCULOSKELETAL Hx Musculoskeletal Disorders: No - PSYCH Hx Psych Problems: Yes Hx Anxiety: Yes Hx Depression: Yes - HEMATOLOGY/ONCOLOGY Hx Hematology/Oncology Disorders: No Family Medical History *Cancer Comment: aunt-breast cancer Hx HTN: Father, Grandparents Disposition Clinical Impression: Ankle pain, right, Bimalleolar fracture of right ankle Disposition: Home, Self-Care Condition: (1) Good Instructions: Ankle Fracture (ED) Additional Instructions: Call ortho Tomorrow and tell them how her ankle is feeling and elevate leg and continue to use ice increase motrin OTC to three tabs every 6 hours. norco 7.5 mg every 4 hours PRN. Prescriptions: Hydrocodone/Acetaminophen [[place] 7.5-325 Tablet] 1 each PO Q4HR #18 tablet Forms: Patient Portal Access Quality - Quality Measures Quality Measures: N/A - Blunt Head Trauma - Adult ICD10 Codes Entered: No - Blood Pressure Screening Does Patient Have Any of the Following: No Blood Pressure Classification: Pre-Hypertensive BP Reading Systolic Measurement: 121 Diastolic Measurement: 72 Screening for High Blood Pressure: < Pre-Hypertensive BP, F/U Documented > [ G8950] Pre-Hypertensive Follow-up Interventions: Referral to alternative/primary care provider.
--- NOTE | 2018-03-20 11:06 | Emergency Department Record ---
History of Present Illness - General Chief Complaint: Ankle/Foot Injury Stated Complaint: ANKLE PAIN Time Seen by Provider: 03/20/18 10:44 Mode of Arrival: EMS - History of Present Illness Initial Comments: fracture ankle bimalleolar fracture and seen at [facility] and it was set and she is following up with ortho on and surgery is planned. She came in by ambulance because of ankle pain. right. removed dayton wrap and pulses are good and opened padding slightly and everything looks good and reapplied dayton wrap. Patient ran out of pain medication. She is taking motrin 400 mg every 6 hours and was given 3 days of norco 5mg. Patient has a plaster splint on the lower leg Onset/Timin -: Days(s) Type of Injury: Unknown Place: Other Severity: Moderate Severity scale (1-10): 10 Improves With: Nothing Worsens With: Nothing Context: Other Associated Symptoms: Unable to bear weight - Related Data Previous Rx's Medication Instructions Recorded Hydrocodone/Acetaminophen [[place] 1 each PO Q4HR #18 tablet 03/20/18 7.5-325 Tablet] Allergies Allergy/AdvReac Type Severity Reaction Status Date / Time No Known Drug Allergies Allergy Verified 03/20/18 10:37 Travel Screening - Travel/Exposure Within Last 30 Days Have you traveled within the last 30 days?: No - Travel/Exposure Within Last Year Have you traveled outside the [place] in the last year?: No - Additonal Travel Details Have you been exposed to anyone with a communicable illness?: No - Travel Symptoms Symptom Screening: None Review of Systems Reviewed: No additional complaints except as noted below Constitutional: Reports: As per HPI. Denies: Chills, Fever, Malaise, Night sweats, Weakness, Weight change Eyes: Reports: As per HPI. Denies: Eye discharge, Eye pain, Photophobia, Vision change ENT: Reports: As per HPI. Denies: Congestion, Dental pain, Ear pain, Epistaxis , Hearing loss, Throat pain Respiratory: Reports: As per HPI. Denies: Cough, Dyspnea, Hemoptysis, Stridor, Wheezes Cardiovascular: Reports: As per HPI. Denies: Arrhythmia, Chest pain, Dyspnea on exertion, Edema, Murmurs, Orthopnea, Palpitations, Paroxysmal nocturnal dyspnea, Rheumatic Fever, Syncope Endocrine: Reports: As per HPI. Denies: Fatigue, Heat or cold intolerance, Polydipsia, Polyuria Gastrointestinal: Reports: As per HPI. Denies: Abdominal pain, Constipation, Diarrhea, Hematemesis, Hematochezia, Melena, Nausea, Vomiting Genitourinary: Reports: As per HPI. Denies: Abnormal menses, Discharge, Dyspareunia, Dysuria, Frequency, Hematuria, Incontinence, Retention, Urgency Musculoskeletal: Reports: As per HPI, Other (right ankle pain). Denies: Arthralgia, Back pain, Gout, Joint swelling, Myalgia, Neck pain Skin: Reports: As per HPI. Denies: Bruising, Change in color, Change in hair/ nails, Lesions, Pruritus, Rash Neurological: Reports: As per HPI. Denies: Abnormal gait, Confusion, Headache, Numbness, Paresthesias, Seizure, Tingling, Tremors, Vertigo, Weakness Psychiatric: Reports: As per HPI. Denies: Anxiety, Auditory hallucinations, Depression, Homicidal thoughts, Suicidal thoughts, Visual hallucinations Hematological/Lymphatic: Reports: As per HPI. Denies: Anemia, Blood Clots, Easy bleeding, Easy bruising, Swollen glands Past Medical History - SOCIAL HISTORY Smoking Status: Current every day smoker - RESPIRATORY Hx Respiratory Disorders: Yes Hx Pneumonia: Yes - CARDIOVASCULAR Hx Cardio Disorders: No - NEURO Hx Neuro Disorders: Yes Hx Seizures: Yes (Childhood epilepsy) - GI Hx GI Disorders: Yes Hx Abdominal Pain: Yes Hx Irritable Bowel: Yes (ulcerative colitis) Hx Pancreatitis: Yes Comment:: w/Elisa-bowel was knicked-became septic, needed resection - Hx Genitourinary Disorders: No - ENDOCRINE Hx Endocrine Disorders: No - MUSCULOSKELETAL Hx Musculoskeletal Disorders: No - PSYCH Hx Psych Problems: Yes Hx Anxiety: Yes Hx Depression: Yes - HEMATOLOGY/ONCOLOGY Hx Hematology/Oncology Disorders: No Family Medical History *Cancer Comment: aunt-breast cancer Hx HTN: Father, Grandparents Course Vital Signs 03/20/18 10:38 Temperature 98.9 F Pulse Rate 93 H Respiratory 20 Rate Blood Pressure 121/72 Pulse Ox 99 Neuro vascular intact,pulses good and moves toes well Disposition Clinical Impression: Ankle pain, right Qualifiers: Chronicity: acute Qualified Code(s): M25.571 - Pain in right ankle and joints of right foot Bimalleolar fracture of right ankle Qualifiers: Encounter type: sequela Fracture type: closed Qualified Code(s): S82.841S - Displaced bimalleolar fracture of right lower leg, sequela Disposition: Home, Self-Care Condition: (1) Good Instructions: Ankle Fracture (ED) Additional Instructions: Call ortho Tomorrow and tell them how her ankle is feeling and elevate leg and continue to use ice increase motrin OTC to three tabs every 6 hours. norco 7.5 mg every 4 hours PRN. Prescriptions: Hydrocodone/Acetaminophen [[place] 7.5-325 Tablet] 1 each PO Q4HR #18 tablet Forms: Patient Portal Access Time of Disposition: 11:21 Quality - Quality Measures Quality Measures: N/A - Blunt Head Trauma - Adult ICD10 Codes Entered: No - Blood Pressure Screening Does Patient Have Any of the Following: No Blood Pressure Classification: Pre-Hypertensive BP Reading Systolic Measurement: 121 Diastolic Measurement: 72 Screening for High Blood Pressure: < Pre-Hypertensive BP, F/U Documented > [ G8950] Pre-Hypertensive Follow-up Interventions: Referral to alternative/primary care provider.
[2018-03-20] MEDS ORDERED: HYDROCODONE/APAP 7.5/325MG TABLET PO ONE (11:07)
== END 2018-03-20 11:26 | disposition home or self-care (01) ==
LOC: ER 10:29
DX: S82.841A Displaced bimalleolar fracture of right lower leg, initial encounter for closed fracture (principal); X58.XXXA Exposure to other specified factors, initial encounter; F17.210 Nicotine dependence, cigarettes, uncomplicated
CPT/HCPCS: 99282

== ENCOUNTER 2018-05-01 13:25 | Emergency (ER) | payer MEDICAID ==
--- NOTE | 2018-05-01 13:48 | Emergency Department Record ---
History of Present Illness - General Chief Complaint: Ankle/Foot Injury Stated Complaint: RT ANKLE INJURY Time Seen by Provider: 05/01/18 13:38 Source: Patient Mode of Arrival: Ambulatory Limitations: No limitations - History of Present Illness Initial Comments: The patient is here due to re-injuring her R Ankle yesterday. She is about 7 weeks out from surgery due to a Bimalleolar R ankle fx and was told by her surgeon 4 days ago that she could start to weight bear in her walking boot. Last evening she accidentally twisted the ankle while wearing the boot and since the ankle has been more painful. Complaint: Ankle injury Onset/Timin -: Hour(s) Type of Injury: Inversion Place: Home Severity: Moderate Severity scale (1-10): 8 Improves With: Nothing Worsens With: Movement, Weight bearing Context: Walking Associated Symptoms: Swelling, Able to partially bear weight - Related Data Allergies Allergy/AdvReac Type Severity Reaction Status Date / Time No Known Drug Allergies Allergy Verified 05/01/18 13:33 Travel Screening - Travel/Exposure Within Last 30 Days Have you traveled within the last 30 days?: No - Travel/Exposure Within Last Year Have you traveled outside the [place] in the last year?: No - Additonal Travel Details Have you been exposed to anyone with a communicable illness?: No - Travel Symptoms Symptom Screening: None Review of Systems Constitutional: Denies: Chills, Fever Eyes: Denies: Eye discharge ENT: Denies: Congestion Respiratory: Denies: Cough Past Medical History - SOCIAL HISTORY Smoking Status: Current every day smoker Alcohol Use: Occasional Drug Use: None - RESPIRATORY Hx Respiratory Disorders: Yes Hx Pneumonia: Yes - CARDIOVASCULAR Hx Cardio Disorders: No - NEURO Hx Neuro Disorders: Yes Hx Seizures: Yes (Childhood epilepsy) - GI Hx GI Disorders: Yes Hx Abdominal Pain: Yes Hx Irritable Bowel: Yes (ulcerative colitis) Hx Pancreatitis: Yes Comment:: w/Elisa-bowel was knicked-became septic, needed resection - Hx Genitourinary Disorders: No - ENDOCRINE Hx Endocrine Disorders: No - MUSCULOSKELETAL Hx Musculoskeletal Disorders: No - PSYCH Hx Psych Problems: Yes Hx Anxiety: Yes Hx Depression: Yes - HEMATOLOGY/ONCOLOGY Hx Hematology/Oncology Disorders: No Family Medical History Any Significant Family History?: Yes *Cancer Comment: aunt-breast cancer Hx HTN: Father, Grandparents Physical Exam - General General Appearance: Alert, Oriented x3, Cooperative, No acute distress - Head Head exam: Atraumatic, Normocephalic, Normal inspection - Eye Eye exam: Normal appearance, PERRL - Extremities Extremities exam: Tenderness (There is diffuse mild anterior and lateral and medial ankle tenderness.), Other (The R foot is NVI.). negative: Normal inspection (The R ankle has well healed recent surgical scars present. There is mild swelling that appears chronic.), Full ROM Course Vital Signs 05/01/18 13:35 Temperature 98.6 F Pulse Rate 98 H Respiratory 16 Rate Blood Pressure 124/80 Pulse Ox 98 - Reevaluation(s) Reevaluation #1: The patient got sick of waiting and decided to walk out prior to discharge. I did apologize for for the wait but due to the ER being very busy her xrays were delayed. 05/01/18 15:16 Medical Decision Making - Data Complexity MDM Data: X-Ray Ordered and/or Reviewed - Radiology Data Radiology results: Report reviewed (R ankle: Post op changes. Neg for acute changes.) Disposition Disposition: Discharge Clinical Impression: Bimalleolar fracture of right ankle Qualifiers: Encounter type: sequela Fracture type: closed Qualified Code(s): S82.841S - Displaced bimalleolar fracture of right lower leg, sequela Disposition: Home, Self-Care Condition: (2) Stable Instructions: Ankle Fracture (ED) Forms: Patient Portal Access Time of Disposition: 15:18 Quality - Quality Measures Quality Measures: N/A, Blunt Head Trauma (>2yr) - Blunt Head Trauma - Adult Quality Measure: Measure #415: Utilization of CT for Minor Blunt Head Trauma ICD10 Codes Entered: Yes View Details: Yes Was CT ordered: No Mariah Score: Please complete [place] Coma Scale above Utilization of CT for Minor Blunt Head Trauma: Not Eligible For Measure Additional Inclusion Criteria: More than 24hrs (OR) GCS not 15 (OR) CT not ordered. Not Eligible Reason: CT Not Ordered - Blood Pressure Screening View Details: Yes Does Patient Have Any of the Following: No Blood Pressure Classification: Pre-Hypertensive BP Reading Systolic Measurement: 124 Diastolic Measurement: 80 Screening for High Blood Pressure: < Pre-Hypertensive BP, F/U Documented > [ G8950] Pre-Hypertensive Follow-up Interventions: Referral to alternative/primary care provider.
[2018-05-01] MEDS ORDERED: ACETAMINOPHEN 325 MG TAB PO ONE (14:45)
--- NOTE | 2018-05-03 06:01 | RADIOLOGY REPORT ---
DATE: 05/01/2018. EXAM: RIGHT ANKLE, THREE VIEWS. HISTORY: Right ankle pain. Postoperative one month TECHNIQUE: Three views of the right ankle. FINDINGS: There has been previous open reduction and internal fixation of the distal fibula with screw and plate fixation. Additionally there has been previous open reduction and internal fixation of the distal tibia/medial malleolus with partially threaded screws. No evidence for hardware failure. No well-defined fracture line is seen. There appears to be some periostitis along the posterior and medial tibia. IMPRESSION: 1. NO CLEARLY ACUTE OSSEOUS ABNORMALITY OF THE LEFT ANKLE. PREVIOUS ORIF. JOB NUMBER: [id number] MTDD
== END 2018-05-01 15:18 | disposition left against medical advice (07) ==
LOC: ER 13:25
DX: G89.11 Acute pain due to trauma (principal); M25.571 Pain in right ankle and joints of right foot; X50.1XXA Overexertion from prolonged static or awkward postures, initial encounter; F17.210 Nicotine dependence, cigarettes, uncomplicated; Y92.009 Unspecified place in unspecified non-institutional (private) residence as the place of occurrence of the external cause; Z98.890 Other specified postprocedural states
CPT/HCPCS: 99283

== ENCOUNTER 2019-03-22 21:42 | Emergency (ER) | payer MEDICAID ==
[2019-03-22] MEDS ORDERED: METHYLPREDNISOLONE PF 125MG/VIAL IM ONE (21:49)
[2019-03-22] MEDS ORDERED: IPRATROPIUM/ALBUTEROL (0.5MG/3MG) NEB INH ONE (21:49)
--- NOTE | 2019-03-22 21:55 | Emergency Department Record ---
History of Present Illness - General Chief Complaint: Difficulty Breathing Stated Complaint: CHEST PRESSURE,DHRUV Time Seen by Provider: 03/22/19 21:48 Source: Patient Mode of Arrival: Ambulatory Limitations: No limitations - History of Present Illness Initial Comments: 33 yo female presents by EMS. She reports she has had a cough for about 5 days starting on Wednesday. The cough has mostly been dry or with clear sputum. No discolored sputum or blood. No fever. At times she feels a tight feeling in the chest and it affects her breathing. She was seen in the [facility]. She reports no history of diagnosed heart or lung disease. No abdominal pain. No leg pain or swelling. No control. No personal history of cardiol pulmonary disease. No family history of premature CAD or early that is non accidental. MD Complaint: Chest pain (tight with breathing), Cough -: Days(s) Severity: Moderate Quality: Other (tightness) Consistency: Intermittent Improves With: Nothing Worsens With: Coughing Known History Of: Recurrent pneumonia Context: Recent URI Associated Symptoms: Cough Treatments Prior to Arrival: Bronchodilator - Related Data Home Medications Medication Instructions Recorded Confirmed Last Taken Dicyclomine HCl [Bentyl] 10 mg PO Q8H PRN 03/22/19 03/22/19 Unknown Sertraline HCl [Zoloft] 50 mg PO DAILY 03/22/19 03/22/19 1 Day Ago ~03/21/19 Previous Rx's Medication Instructions Recorded Prednisone [Prednisone 20Mg] 20 mg PO BID #10 tab 03/22/19 Allergies Allergy/AdvReac Type Severity Reaction Status Date / Time No Known Drug Allergies Allergy Verified 03/22/19 21:45 Review of Systems Constitutional: Denies: Chills, Fever, Malaise, Weakness Eyes: Denies: Eye discharge, Eye pain, Photophobia, Vision change ENT: Reports: Congestion (green discharge). Denies: Epistaxis, Throat pain Respiratory: Reports: Cough, Dyspnea. Denies: Hemoptysis, Stridor, Wheezes Cardiovascular: Reports: Chest pain (tightness). Denies: Dyspnea on exertion, Edema, Palpitations, Syncope Endocrine: Denies: Fatigue, Polydipsia, Polyuria Gastrointestinal: Denies: Abdominal pain, Diarrhea, Nausea, Vomiting Genitourinary: Denies: Dysuria, Hematuria, Urgency Musculoskeletal: Denies: Arthralgia, Back pain, Myalgia, Neck pain Neurological: Denies: Confusion, Numbness, Weakness Psychiatric: Denies: Anxiety Hematological/Lymphatic: Denies: Easy bleeding, Easy bruising Past Medical History - SOCIAL HISTORY Smoking Status: Current every day smoker Drug Use: None - RESPIRATORY Hx Respiratory Disorders: Yes Hx Pneumonia: Yes - CARDIOVASCULAR Hx Cardio Disorders: No - NEURO Hx Neuro Disorders: Yes Hx Seizures: Yes (Childhood epilepsy) - GI Hx GI Disorders: Yes Hx Abdominal Pain: Yes Hx Irritable Bowel: Yes (ulcerative colitis) Hx Pancreatitis: Yes Comment:: w/Elisa-bowel was knicked-became septic, needed resection - Hx Genitourinary Disorders: No - ENDOCRINE Hx Endocrine Disorders: No - MUSCULOSKELETAL Hx Musculoskeletal Disorders: No - PSYCH Hx Psych Problems: Yes Hx Anxiety: Yes Hx Depression: Yes - HEMATOLOGY/ONCOLOGY Hx Hematology/Oncology Disorders: No Family Medical History *Cancer Comment: aunt-breast cancer Hx HTN: Father, Grandparents Physical Exam - General General Appearance: Alert, Oriented x3, Cooperative, No acute distress Limitations: No limitations - Head Head exam: Atraumatic, Normal inspection - Eye Eye exam: Normal appearance, PERRL. negative: Conjunctival injection, Scleral icterus - ENT ENT exam: Normal exam, Mucous membranes moist Ear exam: Normal external inspection Nasal Exam: Discharge Mouth exam: Normal external inspection Teeth exam: Normal inspection Throat exam: Normal inspection - Neck Neck exam: Normal inspection. negative: Lymphadenopathy, Tenderness - Respiratory Respiratory exam: Decreased breath sounds, Prolonged expiratory. negative: A ccessory muscle use, Chest wall tenderness, Respiratory distress, Rhonchi, Stridor, Wheezes - Cardiovascular Cardiovascular Exam: Regular rate, Normal rhythm, Normal heart sounds Peripheral Pulses: 2+: Radial (R), Radial (L) - GI/Abdominal GI/Abdominal exam: Soft. negative: Tenderness - Rectal Rectal exam: Deferred - exam: Deferred - Extremities Extremities exam: Normal inspection. negative: Pedal edema, Tenderness - Back Back exam: Denies: CVA tenderness (R), CVA tenderness (L) - Neurological Neurological exam: Alert, Oriented X3 - Psychiatric Psychiatric exam: Normal affect, Normal mood. negative: Agitated, Anxious - Skin Skin exam: Dry, Intact, Normal color, Warm Course - Reevaluation(s) Reevaluation #1: 03/22/19 22:17 EKG #1: 21:56 Rate: 95 Rhythm: sinus [place]: normal Intervals: normal ST segments: normal Prior: No changes from 11/14/17 03/22/19 22:18 03/22/19 22:34 Recheck the patient feels "100% better" On examination lung air movement is noticeably better 03/22/19 22:35 The labs were reviewed No acute abnormalities except 3.1 K 03/22/19 22:36 CXR yesterday was normal 03/22/19 22:59 The patient is requesting DC. She pulled out her IV and is standing at the door of her room She completely resolved with the breathing treatment No cardiac risk factors other that a smoker. 4 days of symptoms with as normal EKG and troponin. Serial troponins or admission of low utility She was advised to stop smoking She will be DC on Steroids 03/22/19 23:31 Medical Decision Making - Lab Data Result diagrams: 03/22/19 21:38 03/22/19 21:38 Disposition Disposition: Discharge Clinical Impression: Reactive airway disease that is not asthma Disposition: Home, Self-Care Condition: (1) Good Instructions: Reactive Airways Disease (ED), Dyspnea (ED) Additional Instructions: Call your doctor for the next available follow up appointment Use the inhaler every fours hours Take the Prednisone twice daily the next 5 days. Review this ER visit and the tests performed her and in the ready care with your family doctor Return to the ER for a recheck if worse, any new concerns or questions Take the prescriptions provided as directed Prescriptions: Prednisone [Prednisone 20Mg] 20 mg PO BID #10 tab Forms: Patient Portal Access Time of Disposition: 23:02 Quality - Quality Measures Quality Measures: N/A - Blood Pressure Screening Does Patient Have Any of the Following: No Blood Pressure Classification: Normal BP Reading Systolic Measurement: 118 Diastolic Measurement: 76 Screening for High Blood Pressure: < Normal BP, F/U Not Required > [G8783]
[2019-03-22 21:59] LABS: ABSOLUTE NEUTROPHIL COUNT 5.08; BASO % 0.1 % (0-6); EOS % 0.7 % (0-6); GRAN % 57.6 % (47-80); HEMATOCRIT 40.4 % (35.0-47.0); HEMOGLOBIN 13.3 gm/dl (11.6-16.0); LYMPH % 33.5 % (16-45); MEAN CELL VOLUME 95.1 fl (81-97); MEAN CORPUSCULAR HEMOGLOBIN 31.3 pg (27-33); MEAN CORPUSCULAR HGB CONC 32.9 g/dl (32-36); MEAN PLATELET VOLUME 11.1 fl (7.4-10.4); MONO % 8.1 % (0-9); PLATELET COUNT 195 K/uL (130-400); RED BLOOD COUNT 4.25 M/uL (3.80-5.40); RED CELL DISTRIBUTION WIDTH 12.7 % (11.5-14.5); WHITE BLOOD COUNT W/O DIFF 8.8 K/uL (4.2-12.2)
[2019-03-22 22:13] LABS: BLOOD UREA NITROGEN 6 mg/dL (6-20); CREATININE 0.5 mg/dL (0.5-0.9); EST GLOMERULAR FILTRATION RATE > 60 mL/min
[2019-03-22 22:16] LABS: GLUCOSE,RANDOM 103 mg/dL (74-109)
[2019-03-22] MEDS ORDERED: POTASSIUM CHLORIDE 20 MEQ TABLET PO ONE (22:35)
== END 2019-03-22 23:06 | disposition home or self-care (01) ==
LOC: ER 21:42
DX: J45.909 Unspecified asthma, uncomplicated (principal); R07.89 Other chest pain; R06.00 Dyspnea, unspecified; R05 Cough; F17.210 Nicotine dependence, cigarettes, uncomplicated
CPT/HCPCS: 80048; 84484; 84703; 85025; 85379; 93005; 93010; 94640; 96372; 99284; J2930